=== PATIENT | female | born 1960 | race Caucasian/White ===

== ENCOUNTER 2018-10-11 13:55 | Emergency (ER) | payer OTHER ==
[~2018-10-11] VITALS: Ht 157.5 cm; Wt 64.4 kg
--- OUTSIDE RECORDS SUMMARY | 2018-10-11 13:59 | XMS REPORT | Continuity of Care Document ---
Author Author [facility] Interface Address Unknown Phone Unavailable Problems Problem Status Onset Date Classification Date Reported Comments Source Ingrowing toenail 10/02/2017 Diagnosis 11/17/[address] [facility] Nausea 09/03/2017 Diagnosis 11/17/[address] [facility] Vaccine refused by patient 07/08/2017 Diagnosis 11/17/2017 [facility] Depression screening 06/11/2017 Diagnosis 11/17/[address] [facility] Cough 02/02/2017 Diagnosis 11/17/2017 [facility] Acute conjunctivitis 01/19/2017 Diagnosis 11/17/2017 [facility] Allergic conjunctivitis 12/26/2016 Diagnosis 11/17/2017 [facility] Tobacco dependence syndrome 12/26/2016 Diagnosis 11/17/2017 [facility] Acute exacerbation of chronic obstructive airways disease 12/26/2016 Diagnosis 11/17/[address] [facility] Tobacco Dependence Syndrome 12/26/2016 Problem 11/17/[address] [facility] Acute bronchitis 10/30/2016 Diagnosis 11/17/[address] [facility] History of cerebrovascular accident 09/04/2016 Diagnosis 11/17/2017 [facility] Mononeuropathy of upper limb 09/04/2016 Diagnosis 11/17/2017 [facility] Neck pain 08/08/2016 Diagnosis 11/17/2017 [facility] Primary insomnia 08/08/2016 Diagnosis 11/17/2017 [facility] Pure hypercholesterolemia 08/08/2016 Diagnosis 11/17/2017 [facility] Essential hypertension 08/08/2016 Diagnosis 11/17/[address] [facility] Herpes simplex 08/08/2016 Diagnosis 11/17/2017 [facility] Essential Hypertension 08/08/2016 Problem 11/17/2017 [facility] Chronic obstructive lung disease 06/06/2016 Diagnosis 11/17/[address] [facility] Cellulitis of lower limb 06/06/2016 Diagnosis 11/17/2017 [facility] Low back pain 06/06/2016 Diagnosis 11/17/2017 [facility] Pure Hypercholesterolemia 12/12/2015 Problem 11/17/[address] [facility] History of TIA 11/13/2015 Problem 11/17/2017 [facility] Herpes Simplex 06/18/2015 Problem 11/17/2017 [facility] Anxiety 06/18/2015 Problem 11/17/2017 [facility] Nicotine Dependence 06/18/2015 Problem 11/17/2017 [facility] Tobacco Dependence in Remission 06/18/2015 Problem 11/17/2017 [facility] Primary Insomnia 06/18/2015 Problem 11/17/2017 [facility] Insomnia 06/18/2015 Problem 11/17/2017 [facility] Chronic Obstructive Lung Disease 06/18/2015 Problem 11/17/2017 [facility] Neck Pain 06/18/2015 Problem 11/17/2017 [facility] Low Back Pain 06/18/2015 Problem 11/17/2017 [facility] Medications Medication Details Route Status Patient Instructions Ordering Provider Order Date Source Chantix Starting Month Box 0.5 mg (11)-1 mg (42) tablets in dose pack Chantix Starting Month Box 0.5 mg (11)-1 mg (42) tablets in dose pack Active 11/02/2017 [facility] olopatadine 1 MG/ML Ophthalmic Solution olopatadine 0.1 % eye drops Active 11/02/2017 [facility] Aspirin 325 MG Delayed Release Oral Tablet aspirin 325 mg tablet,delayed release Active 09/03/2017 [facility] Cephalexin 500 MG Oral Capsule cephalexin 500 mg capsule Active 09/03/2017 [facility] doxycycline hyclate 100 MG Oral Capsule doxycycline hyclate 100 mg capsule Active 09/03/2017 [facility] umeclidinium 0.0625 MG/ACTUAT Dry Powder Inhaler Incruse Ellipta 62.5 mcg/actuation powder for inhalation Active 09/03/2017 [facility] Acetaminophen 325 MG / Oxycodone Hydrochloride 5 MG Oral Tablet oxycodone-acetaminophen 5 mg-325 mg tablet Active 09/03/2017 [facility] Sulfamethoxazole 800 MG / Trimethoprim 160 MG Oral Tablet sulfamethoxazole 800 mg-trimethoprim 160 mg tablet Active 09/03/2017 [facility] valacyclovir 500 MG Oral Tablet valacyclovir 500 mg tablet Active 09/03/2017 [facility] methylprednisolone acetate 80 MG/ML Injectable Suspension [Depo-Medrol] Depo-Medrol 80 mg/mL suspension for injection Take 1 mL every day by injection route. Active 02/18/2017 [facility] Medrol (Ananth) 4 mg tablets in a dose pack Medrol (Ananth) 4 mg tablets in a dose pack take as directed Active 02/18/2017 [facility] Bupropion (Smoking Deter) 150 mg tablet,extended release Bupropion (Smoking Deter) 150 mg tablet,extended release Take 1 tablet twice a day by oral route. Active 02/02/2017 [facility] Hydrocortisone 10 MG/ML / Neomycin 3.5 MG/ML / Polymyxin B 20346 UNT/ML Ophthalmic Suspension neomycin 3.5 mg-polymyxin 10,000 unit-hydrocort 10 mg/mL eye drop,susp INSTILL 1 DROP INTO AFFECTED EYE(S) BY OPHTHALMIC ROUTE EVERY 4 HOURS Active 02/02/2017 [facility] Rosuvastatin calcium 5 MG Oral Tablet rosuvastatin 5 mg tablet TAKE ONE TABLET BY MOUTH ONCE A DAY. Active 11/28/2016 [facility] hydrocodone-acetaminophen 325 mg-10 mg tablet hydrocodone- acetaminophen 325 mg-10 mg tablet Take 1 tablet every 6 hours by oral route as needed for 30 days. Active 10/03/2016 [facility] 200 ACTUAT Albuterol 0.09 MG/ACTUAT Metered Dose Inhaler [ProAir] ProAir HFA 90 mcg/actuation aerosol inhaler Inhale 2 puffs every 4 hours by inhalation route for 30 days. Active 10/03/2016 [facility] alcaftadine 2.5 MG/ML Ophthalmic Solution [Lastacaft] Lastacaft 0.25 % eye drops Active [facility] Amerigel Wound Wash solution Amerigel Wound Wash solution Apply twice a day to affected area Active [facility] Aspirin 81 MG Delayed Release Oral Tablet aspirin 81 mg tablet,delayed release Active [facility] Azithromycin 250 MG Oral Tablet azithromycin 250 mg tablet Active [facility] fluticasone furoate 0.1 MG/ACTUAT / vilanterol 0.025 MG/ACTUAT Dry Powder Inhaler Breo Ellipta 100 mcg-25 mcg/dose powder for inhalation Inhale 1 puff every day by inhalation route for 90 days. Active [facility] fluticasone furoate 0.2 MG/ACTUAT / vilanterol 0.025 MG/ACTUAT Dry Powder Inhaler Breo Ellipta 200 mcg-25 mcg/dose powder for inhalation Active [facility] cefdinir 300 MG Oral Capsule cefdinir 300 mg capsule Active [facility] varenicline 1 MG Oral Tablet Chantix Continuing Month Box 1 mg tablet Take 1 tablet twice a day by oral route. Active [facility] ciclopirox 80 MG/ML Topical Solution ciclopirox 8 % topical solution Active [facility] clopidogrel 75 MG Oral Tablet clopidogrel 75 mg tablet Active [facility] Codeine Phosphate 2 MG/ML / Guaifenesin 20 MG/ML Oral Solution Virtussin AC 10 mg-100 mg/5 mL oral liquid Active [facility] Fluticasone propionate 0.05 MG/ACTUAT Metered Dose Nasal [place] fluticasone 50 mcg/actuation nasal spray,suspension Active [facility] gabapentin 400 MG Oral Capsule gabapentin 400 mg capsule Active [facility] gabapentin 600 MG Oral Tablet gabapentin 600 mg tablet Active [facility] Acetaminophen 325 MG / Hydrocodone Bitartrate 10 MG Oral Tablet hydrocodone 10 mg-acetaminophen 325 mg tablet Take 1 tablet every 6 hours by oral route for 30 days. Active [facility] Ibuprofen 800 MG Oral Tablet ibuprofen 800 mg tablet Active [facility] Albuterol 0.833 MG/ML / Ipratropium [place] 0.167 MG/ML Inhalant Solution ipratropium-albuterol 0.5 mg-3 mg(2.5 mg base)/3 mL nebulization soln Inhale 3 mL 4 times a day by nebulization route for 10 days. Active [facility] Levofloxacin 750 MG Oral Tablet levofloxacin 750 mg tablet Active [facility] Losartan Potassium 50 MG Oral Tablet losartan 50 mg tablet Take 1 tablet every day by oral route for 90 days. Active [facility] meloxicam 7.5 MG Oral Tablet meloxicam 7.5 mg tablet Active [facility] 200 ACTUAT Albuterol 0.09 MG/ACTUAT Dry Powder Inhaler [ProAir] ProAir RespiClick 90 mcg/actuation breath activated Active [facility] Promethazine Hydrochloride 25 MG Oral Tablet promethazine 25 mg tablet Active [facility] Simvastatin 5 MG Oral Tablet simvastatin 5 mg tablet Active [facility] Carisoprodol 350 MG Oral Tablet [Soma] Soma 350 mg tablet Take 1 tablet 3 times a day by oral route as needed for 30 days. Active [facility] Budesonide 0.08 MG/ACTUAT / formoterol fumarate 0.0045 MG/ACTUAT Metered Dose Inhaler Symbicort 80 mcg-4.5 mcg/actuation HFA aerosol inhaler Active [facility] Trazodone Hydrochloride 100 MG Oral Tablet trazodone 100 mg tablet TAKE TWO TABLETS BY MOUTHONCE A DAY EVERY EVENING. Active [facility] valacyclovir 1000 MG Oral Tablet valacyclovir 1 gram tablet Active [facility] Allergies, Adverse Reactions, Alerts Substance Category Reaction Severity Reaction type Status Date Reported Comments Source Immunizations Immunization Date Given Site Status Last Updated Comments Source Tdap 03/31/2016 completed [facility] Results Order Name Results Value Reference Range Date Interpretation Comments Source [facility] metabolic 1999 panel - Serum or Plasma Glucose [Mass/volume] in Serum or Plasma 83 mg/dL 65 - 99 08/09/2016 [facility] metabolic 1999 panel - Serum or Plasma Urea nitrogen [Mass/volume] in Serum or Plasma 16 mg/dL 7 - 25 08/09/2016 [facility] metabolic 1999 panel - Serum or Plasma Creatinine [Mass/volume] in Serum or Plasma 0.66 mg/dL 0.50 - 1.05 08/09/2016 [facility] metabolic 1999 panel - Serum or Plasma Glomerular filtration rate/1.73 sq M.predicted by Creatinine-based formula (MDRD) 99 mL/min/1.73m2 > or=60 08/09/2016 [facility] metabolic 1999 panel - Serum or Plasma Glomerular filtration rate/1.73 sq M predicted among blacks by Creatinine-based formula (MDRD) 114 mL/min/1.73m2 > or=60 08/09/2016 [facility] metabolic 1999 panel - Serum or Plasma Urea nitrogen/Creatinine [Mass Ratio] in Serum or Plasma not applicable 6 - 08/09/2016 [facility] metabolic 1999 panel - Serum or Plasma Sodium [Moles/volume] in Serum or Plasma 142 mmol/L 135 - 146 08/09/2016 [facility] metabolic 2000 panel - Serum or Plasma Potassium [Moles/volume] in Serum or Plasma 4.0 mmol/L 3.5 - 5.3 08/09/2016 [facility] metabolic 1999 panel - Serum or Plasma Chloride [Moles/volume] in Serum or Plasma 106 mmol/L 98 - 110 08/09/2016 [facility] metabolic 1999 panel - Serum or Plasma Carbon dioxide, total [Moles/volume] in Serum or Plasma 29 mmol/L 20 - 31 08/09/2016 [facility] metabolic 1999 panel - Serum or Plasma Calcium [Mass/volume] in Serum or Plasma 9.8 mg/dL 8.6 - 10.4 08/09/2016 [facility] metabolic 1999 panel - Serum or Plasma Protein [Mass/volume] in Serum or Plasma 6.8 g/dL 6.1 - 8.1 08/09/2016 [facility] metabolic 1999 panel - Serum or Plasma Albumin [Mass/volume] in Serum or Plasma 4.5 g/dL 3.6 - 5.1 08/09/2016 [facility] metabolic 1999 panel - Serum or Plasma Globulin [Mass/volume] in Serum by calculation 2.3 g/dL_(calc) 1.9 - 3.7 08/09/2016 [facility] metabolic 1999 panel - Serum or Plasma Albumin/Globulin [Mass Ratio] in Serum or Plasma 2.0 (calc) 1.0 - 2.5 08/09/2016 [facility] metabolic 1999 panel - Serum or Plasma Bilirubin.total [Mass/volume] in Serum or Plasma 0.3 mg/dL 0.2 - 1.2 08/09/2016 [facility] metabolic 1999 panel - Serum or Plasma Alkaline phosphatase [Enzymatic activity/volume] in Serum or Plasma 101 U/L 33 - 130 08/09/2016 [facility] metabolic 1999 panel - Serum or Plasma Aspartate aminotransferase [Enzymatic activity/volume] in Serum or Plasma 13 U/L 10 - 35 08/09/2016 [facility] metabolic 1999 panel - Serum or Plasma Alanine aminotransferase [Enzymatic activity/volume] in Serum or Plasma 11 U/L 6 - 29 08/09/2016 [facility] Lipid 1995 panel - Serum or Plasma Cholesterol [Mass/volume] in Serum or Plasma 199 mg/dL 125 - 200 08/09/2016 [facility] Lipid 1995 panel - Serum or Plasma Cholesterol in HDL [Mass/volume] in Serum or Plasma 44 mg/dL > or=46 08/09/2016 [facility] Lipid 1995 panel - Serum or Plasma Triglyceride [Mass/volume] in Serum or Plasma 306 mg/dL <150 08/09/2016 [facility] Lipid 1995 panel - Serum or Plasma Cholesterol in LDL [Mass/volume] in Serum or Plasma by calculation 94 mg/dL_(calc) <130 08/09/2016 [facility] Lipid 1995 panel - Serum or Plasma Cholesterol.total/Cholesterol.in HDL [Mass ratio] in Serum or Plasma 4.5 (calc) < or=5.0 08/09/[address] [facility] Lipid 1996 panel - Serum or Plasma Cholesterol non HDL [Mass/volume] in Serum or Plasma 155 mg/dL_(calc) 08/09/[address] [facility] Vital Signs Vital Sign Value Date Comments Source Diastolic (mm Hg) 80 11/02/2017 [facility] Height 61.5 11/02/2017 [facility] Systolic (mm Hg) 130 11/02/2017 [facility] Weight 140.6 11/02/2017 [facility] Diastolic (mm Hg) 71 10/02/2017 [facility] Height 61.5 10/02/2017 [facility] Systolic (mm Hg) 133 10/02/2017 [facility] Weight 141.2 10/02/2017 [facility] Diastolic (mm Hg) 95 09/03/2017 [facility] Height 61.5 09/03/2017 [facility] Systolic (mm Hg) 146 09/03/2017 [facility] Weight 143.8 09/03/2017 [facility] Diastolic (mm Hg) 87 08/05/2017 [facility] Height 61.5 08/05/2017 [facility] Systolic (mm Hg) 120 08/05/2017 [facility] Weight 143 08/05/2017 [facility] Diastolic (mm Hg) 87 07/08/2017 [facility] Height 61.5 07/08/2017 [facility] Systolic (mm Hg) 142 07/08/2017 [facility] Weight 140 07/08/2017 [facility] Diastolic (mm Hg) 81 06/11/2017 [facility] Height 61.5 06/11/2017 [facility] Systolic (mm Hg) 125 06/11/2017 [facility] Weight 139 06/11/2017 [facility] Diastolic (mm Hg) 80 05/12/2017 [facility] Height 61.5 05/12/2017 [facility] Systolic (mm Hg) 128 05/12/2017 [facility] Weight 142 05/12/2017 [facility] Diastolic (mm Hg) 85 04/13/2017 [facility] Height 61.5 04/13/2017 [facility] Systolic (mm Hg) 138 04/13/2017 [facility] Weight 139 04/13/2017 [facility] Diastolic (mm Hg) 95 03/16/2017 [facility] Height 61.5 03/16/2017 [facility] Systolic (mm Hg) 153 03/16/2017 [facility] Weight 143 03/16/2017 [facility] Diastolic (mm Hg) 103 02/18/2017 [facility] Height 61.5 02/18/2017 [facility] Systolic (mm Hg) 162 02/18/2017 [facility] Weight 141 02/18/2017 [facility] Diastolic (mm Hg) 99 02/02/2017 [facility] Height 61.5 02/02/2017 [facility] Systolic (mm Hg) 128 02/02/2017 [facility] Weight 140 02/02/2017 [facility] Diastolic (mm Hg) 86 01/19/2017 [facility] Height 61.5 01/19/2017 [facility] Systolic (mm Hg) 141 01/19/2017 [facility] Weight 141 01/19/2017 [facility] Diastolic (mm Hg) 73 12/26/2016 [facility] Height 61.5 12/26/2016 [facility] Systolic (mm Hg) 149 12/26/2016 [facility] Weight 140 12/26/2016 [facility] Diastolic (mm Hg) 96 11/28/2016 [facility] Height 61.5 11/28/2016 [facility] Systolic (mm Hg) 151 11/28/2016 [facility] Weight 140.8 11/28/2016 [facility] Diastolic (mm Hg) 78 10/30/2016 [facility] Height 61.5 10/30/2016 [facility] Systolic (mm Hg) 142 10/30/2016 [facility] Weight 143 10/30/2016 [facility] Diastolic (mm Hg) 93 10/03/2016 [facility] Height 61.5 10/03/2016 [facility] Systolic (mm Hg) 147 10/03/2016 [facility] Weight 142.6 10/03/2016 [facility] Diastolic (mm Hg) 70 09/04/2016 [facility] Height 61.5 09/04/2016 [facility] Systolic (mm Hg) 129 09/04/2016 [facility] Weight 143.6 09/04/2016 [facility] Height 61.5 08/08/2016 [facility] Diastolic (mm Hg) 82 07/08/2016 [facility] Height 61.5 07/08/2016 [facility] Systolic (mm Hg) 118 07/08/2016 [facility] Weight 145 07/08/2016 [facility] Diastolic (mm Hg) 84 06/06/2016 [facility] Height 61.5 06/06/2016 [facility] Systolic (mm Hg) 128 06/06/2016 [facility] Weight 145.4 06/06/2016 [facility] Height 61.5 02/11/2016 [facility] Weight 142.8 02/11/2016 [facility] Diastolic (mm Hg) 78 02/11/2016 [facility] Systolic (mm Hg) 118 02/11/2016 [facility] Diastolic (mm Hg) 82 01/14/2016 [facility] Height 61.5 01/14/2016 [facility] Systolic (mm Hg) 139 01/14/2016 [facility] Weight 140 01/14/2016 [facility] Diastolic (mm Hg) 90 12/12/2015 [facility] Height 61.5 12/12/2015 [facility] Systolic (mm Hg) 160 12/12/2015 [facility] Weight 139.2 12/12/2015 [facility] Diastolic (mm Hg) 80 11/13/2015 [facility] Height 61.5 11/13/2015 [facility] Systolic (mm Hg) 126 11/13/2015 [facility] Weight 134.8 11/13/2015 [facility] Diastolic (mm Hg) 71 10/19/2015 [facility] Height 61.5 10/19/2015 [facility] Systolic (mm Hg) 132 10/19/2015 [facility] Weight 135.8 10/19/2015 [facility] Diastolic (mm Hg) 80 09/19/2015 [facility] Height 61.5 09/19/2015 [facility] Systolic (mm Hg) 124 09/19/2015 [facility] Weight 130 09/19/2015 [facility] Diastolic (mm Hg) 73 08/17/2015 [facility] Height 61.5 08/17/2015 [facility] Systolic (mm Hg) 134 08/17/2015 [facility] Weight 131.8 08/17/2015 [facility] Diastolic (mm Hg) 82 07/19/2015 [facility] Height 61.5 07/19/2015 [facility] Systolic (mm Hg) 132 07/19/2015 [facility] Weight 131 07/19/2015 [facility] Diastolic (mm Hg) 86 06/18/2015 [facility] Height 61.5 06/18/2015 [facility] Systolic (mm Hg) 150 06/18/2015 [facility] Weight 131.2 06/18/2015 [facility] Diastolic (mm Hg) 82 05/21/2015 [facility] Height 61.5 05/21/2015 [facility] Systolic (mm Hg) 124 05/21/2015 [facility] Weight 129.2 05/21/2015 [facility] Diastolic (mm Hg) 80 04/25/2015 [facility] Height 61.5 04/25/2015 [facility] Systolic (mm Hg) 128 04/25/2015 [facility] Weight 129.8 04/25/2015 [facility] Diastolic (mm Hg) 71 03/19/2015 [facility] Height 61.5 03/19/2015 [facility] Systolic (mm Hg) 136 03/19/2015 [facility] Weight 131.6 03/19/2015 [facility] Diastolic (mm Hg) 72 02/12/2015 [facility] Height 61.5 02/12/2015 [facility] Systolic (mm Hg) 143 02/12/2015 [facility] Weight 130.4 02/12/2015 [facility] Diastolic (mm Hg) 90 02/09/2015 [facility] Height 61.5 02/09/2015 [facility] Systolic (mm Hg) 141 02/09/2015 [facility] Weight 129 02/09/2015 [facility] Diastolic (mm Hg) 90 01/03/2015 [facility] Height 61.5 01/03/2015 [facility] Systolic (mm Hg) 150 01/03/2015 [facility] Weight 132.6 01/03/2015 [facility] Diastolic (mm Hg) 91 12/05/2014 [facility] Height 61.5 12/05/2014 [facility] Systolic (mm Hg) 150 12/05/2014 [facility] Weight 132.6 12/05/2014 [facility] Diastolic (mm Hg) 70 11/03/2014 [facility] Systolic (mm Hg) 118 11/03/2014 [facility] Height 61.5 11/03/2014 [facility] Weight 134.8 11/03/2014 [facility] Diastolic (mm Hg) 80 10/05/2014 [facility] Height 61.5 10/05/2014 [facility] Systolic (mm Hg) 120 10/05/2014 [facility] Weight 135 10/05/2014 [facility] Diastolic (mm Hg) 80 08/18/2014 [facility] Height 61.5 08/18/2014 [facility] Systolic (mm Hg) 140 08/18/2014 [facility] Weight 129.6 08/18/2014 [facility] Diastolic (mm Hg) 90 07/21/2014 [facility] Height 61.5 07/21/2014 [facility] Systolic (mm Hg) 140 07/21/2014 [facility] Weight 131.8 07/21/2014 [facility] Diastolic (mm Hg) 90 06/22/2014 [facility] Height 61.5 06/22/2014 [facility] Systolic (mm Hg) 140 06/22/2014 [facility] Weight 131 06/22/2014 [facility] Height 61.5 04/27/2014 [facility] Weight 128.4 04/27/2014 [facility] Height 61.5 02/28/2014 [facility] Weight 124.2 02/28/2014 [facility] Height 61.5 11/04/2013 [facility] Weight 128.4 11/04/2013 [facility] Weight 125.8 09/02/2013 [facility] Height 61.5 09/02/2013 [facility] Height 61.5 05/31/2013 [facility] Weight 125.8 05/31/2013 [facility] Height 61.5 02/02/2013 [facility] Weight 126.2 02/02/2013 [facility] Height 61.5 10/25/2012 [facility] Weight 135 10/25/2012 [facility] Height 61.5 08/26/2012 [facility] Weight 130 08/26/2012 [facility] Height 61.5 07/02/2012 [facility] Weight 128 07/02/2012 [facility] Height 61.5 05/13/2012 [facility] Weight 128.6 05/13/2012 [facility] [facility] Height 61.5 03/26/2012 [facility] Weight 127 03/26/2012 [facility] Height 61.5 12/26/2011 [facility] Weight 125.6 12/26/2011 [facility] Height 61.5 11/10/2011 [facility] Weight 126.6 11/10/2011 [facility] Weight 126.6 07/15/2011 [facility] Height 61.5 07/15/2011 [facility] Height 61.5 04/17/2011 [facility] Weight 122.4 04/17/2011 [facility] Height 61.5 01/07/2011 [facility] Weight 119.2 01/07/2011 [facility] Weight 126 09/25/2010 [facility] Height 61.5 06/05/2010 [facility] Weight 122 06/05/2010 [facility] Weight 123 04/11/2010 [facility] Weight 131 12/19/2009 [facility] Weight 126.2 12/14/2009 [facility] Weight 116 07/31/2009 [facility] Weight 114 07/16/2009 [facility] Weight 116 07/04/2009 [facility] Weight 116 06/28/2009 [facility] Height 61.5 04/03/2009 [facility] Weight 125 04/03/2009 [facility] Height 62.5 01/18/2009 [facility] Weight 121 01/18/2009 [facility] Weight 125 10/19/2008 [facility] Weight 124.7 09/07/2008 [facility] Weight 127.4 06/26/2008 [facility] Weight 127.6 05/02/2008 [facility] Weight 125.8 03/07/2008 [facility] Weight 127.4 01/14/2008 [facility] Weight 132.6 12/02/2007 [facility] Weight 130.8 11/15/2007 [facility] Weight 135.2 09/08/2007 [facility] Weight 139.2 07/06/2007 [facility] Weight 134.6 05/04/2007 [facility] Weight 136.8 04/15/2007 [facility] Weight 135.7 04/12/2007 [facility] Weight 136.8 03/16/2007 [facility] Weight 134.4 02/16/2007 [facility] Height 62 12/08/2006 [facility] Weight 132.8 12/08/2006 [facility] Height 62 08/14/2006 [facility] Weight 131.3 08/14/2006 [facility] Height 62 04/30/2006 [facility] Weight 127 04/30/2006 [facility] Height 62 10/09/2005 [facility] Weight 130 10/09/2005 [facility] Height 62 07/28/2005 [facility] Weight 135 07/28/2005 [facility] Height 62 03/14/2005 [facility] Weight 132 03/14/2005 [facility] Height 62 01/30/2005 [facility] Weight 129 01/30/2005 [facility] Height 62 10/15/2004 [facility] Weight 124 10/15/2004 [facility] Weight 125 07/19/2004 [facility] Encounters Location Location Details Encounter Type Encounter Number Reason For Visit Attending Provider ADM Date DC Date Status Source [facility] Gayle Pratik, UTILITY AGENT: [address] [facility], [facility] [address], [place] [address], Ph. [id number] Gayle Pratik 06/06/2016 [facility] NICO Rubi: [address] [facility], [facility] [address], [place] [address], Ph. [id number] Cathy Valles 07/08/2016 [facility] Will Tsai MD: [address] [facility], [facility] [address] [address], Ph. [id number] Will Tsai 08/08/2016 [facility] John Hanley MD: [address] [facility], [address] [address], Ph. [id number] John Hanley 09/04/2016 [facility] NICO Rubi: [address] [facility], [facility] [address], [place] [address], Ph. [id number] Cathy Valles 10/03/2016 [facility] NICO Rubi: [address] [facility], [facility] [address], [place] [address], Ph. [id number] Cathy Valles 10/30/2016 [facility] Cathy Valles PA: [address], [address], [place] [address], Ph. [id number] Cathy Valles 11/28/[address] [facility] C[place], [place]: [address], [address], [place] [address], Ph. [id number] Cathy Valles 12/26/[address] [facility] Cathy Valles PA: [address], [address], [place] [address], Ph. [id number] Cathy Valles 01/19/[address] [facility] [place]: [address], [address], [place] [address], Ph. [id number] Cathy Valles 02/02/[address] [facility] Cathy Valles PA: [address], [address], [place] [address], Ph. [id number] Cathy Valles 02/18/[address] [facility] Cathy Valles PA: [address], [address], [place] [address], Ph. [id number] Cathy Valles 03/16/[address] [facility] Cathy Valles PA: [address], [address], [place] [address], Ph. [id number] Cathy Valles 04/13/[address] [facility] Cathy Valles PA: [address] [facility], [address], [place] [address], Ph. [id number] Cathy Valles 05/12/[address] [facility] Cathy Valles PA: [address] [facility], [address], [place] [address], Ph. [id number] Cathy Valles 06/11/2017 [facility] Practice [facility] - [facility] John Hanley MD: [address] [facility], [address], [place] [address], Ph. [id number] John Hanley 07/08/2017 [facility] Gayle Christie, UTILITY AGENT: [address] [facility], [address], [place] [address], Ph. [id number] Gayle Christie 08/05/[address] [facility] Family Practice [facility] John Hanley MD: [address] [facility], [address], [place] [address], Ph. [id number] John Hanley 09/03/[address] [facility] Gayle Christie, UTILITY AGENT: [address] [facility], [address], [place] [address], Ph. [id number] Gayle Christie 10/02/2017 [facility] - [facility] NICO Rubi: [address] [facility] [address], [place] [address], Ph. [id number] Cathy Valles 11/02/2017 [facility] Procedures Procedure Code Date Perfomer Comments Source MAMMO, screening, digital, bilateral 03/17/2017 [facility] [id number] RADIOLOGIC EXAMINATION, CHEST [id number] 02/02/2017 [facility] XR, lumbar spine 08/08/2016 [facility] X-RAY CERVICAL SPINE 2 OR 3 VIEW [id number] 08/08/2016 [facility]
--- OUTSIDE RECORDS SUMMARY | 2018-10-11 14:00 | XMS REPORT ---
Author Organization Unknown Address [address] [place] [id number] Phone [phone] Care Team Providers Care Mother Repairer Name Role Phone JOHN "BRIAN" NICOLASA GRIFFITH 3 [phone] MARITZA LAWLER MD 114 [phone] Allergies Code Code System Name Reaction Severity Status Onset NKDA Medications Name Status Start Date Stop Date Lastacaft 0.25 % eye drops Active Not available Amerigel Wound Wash solution Apply twice a day to affected area Active Not available aspirin 325 mg tablet,delayed release Completed 09/03/2017 aspirin 81 mg tablet,delayed release Active Not available azithromycin 250 mg tablet Active Not available Breo Ellipta 100 mcg-25 mcg/dose powder for inhalation Inhale 1 puff every day by inhalation route for 90 days. Active Not available Breo Ellipta 200 mcg-25 mcg/dose powder for inhalation Active Not available Bupropion (Smoking Deter) 150 mg tablet,extended release Take 1 tablet twice a day by oral route. Completed 02/02/2017 cefdinir 300 mg capsule Active Not available cephalexin 500 mg capsule Completed 09/03/2017 Chantix Continuing Month Box 1 mg tablet Take 1 tablet twice a day by oral route. Active Not available Chantix Starting Month Box 0.5 mg (11)-1 mg (42) tablets in dose pack Completed 11/02/2017 ciclopirox 8 % topical solution Active Not available clopidogrel 75 mg tablet Active Not available Virtussin AC 10 mg-100 mg/5 mL oral liquid Active Not available Depo-Medrol 80 mg/mL suspension for injection Take 1 mL every day by injection route. Completed 02/18/2017 doxycycline hyclate 100 mg capsule Completed 09/03/2017 fluticasone 50 mcg/actuation nasal spray,suspension Active Not available gabapentin 400 mg capsule Active Not available gabapentin 600 mg tablet Active Not available hydrocodone 10 mg-acetaminophen 325 mg tablet Take 1 tablet every 6 hours by oral route for 30 days. Active Not available hydrocodone-acetaminophen 325 mg-10 mg tablet Take 1 tablet every 6 hours by oral route as needed for 30 days. Completed 10/03/2016 ibuprofen 800 mg tablet Active Not available Incruse Ellipta 62.5 mcg/actuation powder for inhalation Completed 09/03/2017 ipratropium-albuterol 0.5 mg-3 mg(2.5 mg base)/3 mL nebulization soln Inhale 3 mL 4 times a day by nebulization route for 10 days. Active Not available levofloxacin 750 mg tablet Active Not available losartan 50 mg tablet Take 1 tablet every day by oral route for 90 days. Active Not available Medrol (Ananth) 4 mg tablets in a dose pack take as directed Completed 02/18/2017 meloxicam 7.5 mg tablet Active Not available neomycin 3.5 mg-polymyxin 10,000 unit-hydrocort 10 mg/mL eye drop,susp INSTILL 1 DROP INTO AFFECTED EYE(S) BY OPHTHALMIC ROUTE EVERY 4 HOURS Completed 02/02/2017 olopatadine 0.1 % eye drops Completed 11/02/2017 oxycodone-acetaminophen 5 mg-325 mg tablet Completed 09/03/2017 ProAir HFA 90 mcg/actuation aerosol inhaler Inhale 2 puffs every 4 hours by inhalation route for 30 days. Completed 10/03/2016 ProAir RespiClick 90 mcg/actuation breath activated Active Not available promethazine 25 mg tablet Active Not available rosuvastatin 5 mg tablet TAKE ONE TABLET BY MOUTH ONCE A DAY. Completed 11/28/2016 simvastatin 5 mg tablet Active Not available Soma 350 mg tablet Take 1 tablet 3 times a day by oral route as needed for 30 days. Active Not available sulfamethoxazole 800 mg-trimethoprim 160 mg tablet Completed 09/03/2017 Symbicort 80 mcg-4.5 mcg/actuation HFA aerosol inhaler Active Not available trazodone 100 mg tablet TAKE TWO TABLETS BY MOUTHONCE A DAY EVERY EVENING. Active Not available valacyclovir 1 gram tablet Active Not available valacyclovir 500 mg tablet Completed 09/03/2017 Problems Name Status Onset Date Source Herpes Simplex Active 06/18/2015 History Anxiety Active 06/18/2015 History Nicotine Dependence Active 06/18/2015 History Tobacco Dependence in Remission Unknown 06/18/2015 History Primary Insomnia Active 06/18/2015 History Insomnia Active 06/18/2015 History Chronic Obstructive Lung Disease Active 06/18/2015 History Neck Pain Active 06/18/2015 History Low Back Pain Active 06/18/2015 History History of TIA Active 11/13/2015 History Pure Hypercholesterolemia Active 12/12/2015 History Essential Hypertension Active 08/08/2016 Tobacco Dependence Syndrome Active 12/26/2016 Procedures Date Name Performed by 08/08/2016 XR, Lumbar Spine [facility] [address] [place], [place] [id number] (Work Place) 08/08/2016 XR, Cervical Spine, 2 or 3 View [facility] [address] [place], [place] [id number] (Work Place) 02/02/2017 XR, Chest, 2 View [facility] [address] [place], [place] [id number] (Work Place) 03/17/2017 MAMMO, Screening, Digital, Bilateral [facility] [address] [place] [address] (Work Place) Notes: 08/2016- Right ankle surgery to remove hardware 03/2016- Right ankle surgery 02/11/2016: Hysterectomy; Surgery Date: 2003 S/P Cholecystectomy; Surgery Date: 2006 S/P Apendicectomy; Surgery Date: 2006 S/P Bresas implants; Surgery Date: 2009 Lab Results Date Name Specimen Result Interpretation Description Value Range Status Address 08/08/2016 Lipid Panel, Serum Normal Cholesterol, Total 199 mg/dL 125- 200 mg/dL Final [facility] Lab: [address], [place] Low HDL Cholesterol 44 mg/dL > or=46 mg/dL Final [facility] Lab: [address], [place] High Triglycerides 306 mg/dL <150 mg/dL Final [facility] Lab: [address], [place] Normal LDL-cholesterol 94 mg/dL (calc) <130 mg/dL (calc) Final [facility] Lab: [address], [place] Normal Chol/hdlc Ratio 4.5 (calc) < or=5.0 (calc) Final [facility] Lab: [address], [place] Normal Non HDL Cholesterol 155 mg/dL (calc) Final [facility] Lab: [address], [place] 08/08/2016 CMP, Serum or Plasma Normal Glucose 83 mg/dL 65-99 mg/dL Final [facility] Lab: [address] [facility], [place] Normal Urea Nitrogen (BUN) 16 mg/dL 7-25 mg/dL Final [facility] Lab: [address] [facility], [place] Normal Creatinine 0.66 mg/dL 0.50-1.05 mg/dL Final [facility] Lab: [address] [facility], [place] Normal eGFR Non-afr. Romanian 99 mL/min/1.73m2 > or=60 mL/min/1.73m2 Final [facility] Lab: [address] [facility], [place] Normal eGFR 114 mL/min/1.73m2 > or=60 mL/min/1.73m2 Final [facility] Lab: [address] [facility], [place] BUN/creatinine Ratio not applicable (calc) 6-22 (calc) Final [facility] Lab: [address] [facility], [place] Normal Sodium 142 mmol/L 135-146 mmol/L Final [facility] Lab: [address] [facility], [place] Normal Potassium 4.0 mmol/L 3.5-5.3 mmol/L Final [facility] Lab: [address] [facility], [place] Normal Chloride 106 mmol/L 98-110 mmol/L Final [facility] Lab: [address] [facility], [place] Normal Carbon Dioxide 29 mmol/L 20-31 mmol/L [facility] Lab: [address] [facility], [place] Normal Calcium 9.8 mg/dL 8.6-10.4 mg/dL Final [facility] Lab: [address] [facility], [place] Normal Protein, Total 6.8 g/dL 6.1-8.1 g/dL Final [facility] Lab: [address] [facility], [place] Normal Albumin 4.5 g/dL 3.6-5.1 g/dL Final [facility] Lab: [address] [facility], [place] Normal Globulin 2.3 g/dL (calc) 1.9-3.7 g/dL (calc) Final [facility] Lab: [address] [facility], [place] Normal Albumin/globulin Ratio 2.0 (calc) 1.0-2.5 (calc) Final [facility] Lab: [address] [facility], [place] Normal Bilirubin, Total 0.3 mg/dL 0.2-1.2 mg/dL Final [facility] Lab: [address] [facility], [place] Normal Alkaline Phosphatase 101 U/L 33-130 U/L Final [facility] Lab: [address] [facility], [place] Normal Ast 13 U/L 10-35 U/L Final [facility] Lab: [address] [facility], [place] Normal Alt 11 U/L 6-29 U/L Final [facility] Lab: [address] [facility], [place] Pulse Oximetry Pulse Ox 97% [facility]: [address] Past Encounters 11/02/2017 Tobacco Dependence Syndrome; Low Back Pain; Chronic Obstructive Lung Disease; Essential Hypertension; Insomnia NICO Rubi: [address] [facility] [address] [address], Ph. 10/02/2017 Low Back Pain; Insomnia; Chronic Obstructive Lung Disease; Tobacco Dependence Syndrome; Ingrowing Toenail Gayle RAGHAV ChristieP: [address] [place] [address], Ph. 09/03/2017 Chronic Obstructive Lung Disease; Low Back Pain; Herpes Simplex; Insomnia; Nausea; Essential Hypertension John Hanley MD: [address] [address], Ph. 08/05/2017 Low Back Pain; Tobacco Dependence Syndrome; Chronic Obstructive Lung Disease; Insomnia Gayle PETER Christie: [address] [address], Ph. 07/08/2017 Essential Hypertension; Low Back Pain; Insomnia; Vaccine Refused by Patient; Chronic Obstructive Lung Disease; Tobacco Dependence Syndrome John Hanley MD: [address] [address], Ph. 06/11/2017 Low Back Pain; Insomnia; Acute Exacerbation of Chronic Obstructive Airways Disease; Chronic Obstructive Lung Disease; Depression Screening Cathy Valles PA: [address] [facility] [address], [place] [address], Ph. 05/12/2017 Low Back Pain NICO Rbui: [address] [facility], [address], [place] [address], Ph. 04/13/2017 Low Back Pain; Chronic Obstructive Lung Disease; Tobacco Dependence Syndrome Cathy Valles PA: [address] [facility], [facility] [address], [place] [address], Ph. 03/16/2017 Low Back Pain; Tobacco Dependence Syndrome Cathy Valles PA: [address] [facility], [facility] [address], [place] [address], Ph. 02/18/2017 Low Back Pain; Primary Insomnia; Chronic Obstructive Lung Disease Cathy Valles PA: [address]44 [facility], [facility], [place] [address], Ph. 02/02/2017 Cough; Chronic Obstructive Lung Disease; Acute Exacerbation of Chronic Obstructive Airways Disease Cathy Valles PA: [address]452 [facility], [facility] [address], [place] [address], Ph. 01/19/2017 Acute Conjunctivitis; Acute Bronchitis; Acute Exacerbation of Chronic Obstructive Airways Disease; Low Back Pain Cathy Valles PA: [address]874 [facility], [facility] [address], [place] [address], Ph. 12/26/2016 Low Back Pain; Chronic Obstructive Lung Disease; Primary Insomnia; History of TIA; Acute Exacerbation of Chronic Obstructive Airways Disease; Tobacco Dependence Syndrome; Allergic Conjunctivitis Cathy Valles PA: [address]406 [facility], [facility] [address], [place] [address], Ph. 11/28/2016 Low Back Pain; Chronic Obstructive Lung Disease; History of TIA; Mononeuropathy of Upper Limb Cathy Valles PA: [address] [facility], [address], [place] [address], Ph. 10/30/2016 Low Back Pain; Acute Bronchitis NICO Rubi: [address] [facility], [address] [address], Ph. 10/03/2016 Low Back Pain; Mononeuropathy of Upper Limb; Primary Insomnia; Herpes Simplex; History of Cerebrovascular Accident NICO Rubi: [address] [facility], [address] [address], Ph. 09/04/2016 Low Back Pain; Chronic Obstructive Lung Disease; Mononeuropathy of Upper Limb; History of Cerebrovascular Accident John Hanley MD: [id number] [facility], [address] [address], Ph. 08/08/2016 Low Back Pain; Chronic Obstructive Lung Disease; Herpes Simplex; Essential Hypertension; Pure Hypercholesterolemia; Primary Insomnia; Neck Pain Will Tsai MD: 53427 [facility], [address] [address], Ph. 07/08/2016 Low Back Pain; Cellulitis of Lower Limb NICO Rubi: [address] [facility], [address] [address], Ph. 06/06/2016 Low Back Pain; Cellulitis of Lower Limb; Chronic Obstructive Lung Disease RAGHAV PulliamP: 46894 [facility], [address] [address], Ph. Social History Smoking Status Heavy Tobacco Smoker (1/2 PPD) Vaccine List Vaccine Type Tdap 03/31/2016 Notes: 01/03/2015: DEPO-MEDROL +LIDOCAINE (01/03/2015) Plan of Care Patient Instructions Apply warm compresses to the affect area. Complete all antibiotics as prescribed. Call or RTC for worsening of symptoms or no improvement after 48hrs of treatment. Reminders Provider Appointments None recorded. Lab None recorded. Referral None recorded. Procedures None recorded. Surgeries None recorded. Imaging None recorded. Vitals 11/02/2017 01:30PM Est Patient Height Weight BMI Blood Pressure 5 ft 1.5 in 140.6 lbs 26.1 kg/m2 130/80 mm[Hg] 10/02/2017 08:15AM Est Patient Height Weight BMI Blood Pressure 5 ft 1.5 in 141.2 lbs 26.2 kg/m2 133/71 mm[Hg] 09/03/2017 09:45AM Est Patient Height Weight BMI Blood Pressure 5 ft 1.5 in 143.8 lbs 26.7 kg/m2 (1) 154/94 mm[Hg] (2) 146/95 mm[Hg] 08/05/2017 08:00AM Est Patient Height Weight BMI Blood Pressure 5 ft 1.5 in 143 lbs 26.6 kg/m2 120/87 mm[Hg] 07/08/2017 03:45PM Est Patient Height Weight BMI Blood Pressure 5 ft 1.5 in 140 lbs 26 kg/m2 142/87 mm[Hg] 06/11/2017 01:30PM Est Patient Height Weight BMI Blood Pressure 5 ft 1.5 in 139 lbs 25.8 kg/m2 125/81 mm[Hg] 05/12/2017 04:00PM Est Patient Height Weight BMI Blood Pressure 5 ft 1.5 in 142 lbs 26.4 kg/m2 128/80 mm[Hg] 04/13/2017 02:30PM Est Patient Height Weight BMI Blood Pressure 5 ft 1.5 in 139 lbs 25.8 kg/m2 138/85 mm[Hg] 03/16/2017 04:30PM Work In Same Day Height Weight BMI Blood Pressure 5 ft 1.5 in 143 lbs 26.6 kg/m2 153/95 mm[Hg] 02/18/2017 04:15PM Est Patient Height Weight BMI Blood Pressure 5 ft 1.5 in 141 lbs 26.2 kg/m2 162/103 mm[Hg] 02/02/2017 04:30PM Est Patient Height Weight BMI Blood Pressure 5 ft 1.5 in 140 lbs 26 kg/m2 128/99 mm[Hg] 01/19/2017 04:30PM Work In Same Day Height Weight BMI Blood Pressure 5 ft 1.5 in 141 lbs 26.2 kg/m2 141/86 mm[Hg] 12/26/2016 02:45PM Est Patient Height Weight BMI Blood Pressure 5 ft 1.5 in 140 lbs 26 kg/m2 149/73 mm[Hg] 11/28/2016 04:30PM Work In Same Day Height Weight BMI Blood Pressure 5 ft 1.5 in 140.8 lbs 26.2 kg/m2 151/96 mm[Hg] 10/30/2016 03:30PM Est Patient Height Weight BMI Blood Pressure 5 ft 1.5 in 143 lbs 26.6 kg/m2 142/78 mm[Hg] 10/03/2016 02:45PM Est Patient Height Weight BMI Blood Pressure 5 ft 1.5 in 142.6 lbs 26.5 kg/m2 147/93 mm[Hg] 09/04/2016 03:45PM Est Patient Height Weight BMI Blood Pressure 5 ft 1.5 in 143.6 lbs 26.7 kg/m2 129/70 mm[Hg] 08/08/2016 03:30PM Work In Same Day Height 5 ft 1.5 in 07/08/2016 03:30PM Est Patient Height Weight BMI Blood Pressure 5 ft 1.5 in 145 lbs 27 kg/m2 118/82 mm[Hg] 06/06/2016 04:00PM Est Patient Height Weight BMI Blood Pressure 5 ft 1.5 in 145.4 lbs 27 kg/m2 128/84 mm[Hg] 02/11/2016 Blood Pressure 118/78 mm[Hg] 02/11/2016 Height Weight BMI 5 ft 1.5 in 142.8 lbs 26.54 kg/m2 01/14/2016 Height Weight BMI Blood Pressure 5 ft 1.5 in 140 lbs 26.02 kg/m2 139/82 mm[Hg] 12/12/2015 Height Weight BMI Blood Pressure 5 ft 1.5 in 139.2 lbs 25.87 kg/m2 160/90 mm[Hg] 11/13/2015 Height Weight BMI Blood Pressure 5 ft 1.5 in 134.8 lbs 25.06 kg/m2 126/80 mm[Hg] 10/19/2015 Height Weight BMI Blood Pressure 5 ft 1.5 in 135.8 lbs 25.24 kg/m2 132/71 mm[Hg] 09/19/2015 Height Weight BMI Blood Pressure 5 ft 1.5 in 130 lbs 24.16 kg/m2 124/80 mm[Hg] 08/17/2015 Height Weight BMI Blood Pressure 5 ft 1.5 in 131.8 lbs 24.50 kg/m2 134/73 mm[Hg] 07/19/2015 Height Weight BMI Blood Pressure 5 ft 1.5 in 131 lbs 24.35 kg/m2 132/82 mm[Hg] 06/18/2015 Height Weight BMI Blood Pressure 5 ft 1.5 in 131.2 lbs 24.39 kg/m2 150/86 mm[Hg] 05/21/2015 Height Weight BMI Blood Pressure 5 ft 1.5 in 129.2 lbs 24.01 kg/m2 124/82 mm[Hg] 04/25/2015 Height Weight BMI Blood Pressure 5 ft 1.5 in 129.8 lbs 24.13 kg/m2 128/80 mm[Hg] 03/19/2015 Height Weight BMI Blood Pressure 5 ft 1.5 in 131.6 lbs 24.46 kg/m2 136/71 mm[Hg] 02/12/2015 Height Weight BMI Blood Pressure 5 ft 1.5 in 130.4 lbs 24.24 kg/m2 143/72 mm[Hg] 02/09/2015 Height Weight BMI Blood Pressure 5 ft 1.5 in 129 lbs 23.98 kg/m2 141/90 mm[Hg] 01/03/2015 Height Weight BMI Blood Pressure 5 ft 1.5 in 132.6 lbs 24.65 kg/m2 150/90 mm[Hg] 12/05/2014 Height Weight BMI Blood Pressure 5 ft 1.5 in 132.6 lbs 24.65 kg/m2 150/91 mm[Hg] 11/03/2014 Height Weight BMI 5 ft 1.5 in 134.8 lbs 25.06 kg/m2 11/03/2014 Blood Pressure 118/70 mm[Hg] 10/05/2014 Height Weight BMI Blood Pressure 5 ft 1.5 in 135 lbs 25.09 kg/m2 120/80 mm[Hg] 08/18/2014 Height Weight BMI Blood Pressure 5 ft 1.5 in 129.6 lbs 24.09 kg/m2 140/80 mm[Hg] 07/21/2014 Height Weight BMI Blood Pressure 5 ft 1.5 in 131.8 lbs 24.50 kg/m2 140/90 mm[Hg] 06/22/2014 Height Weight BMI Blood Pressure 5 ft 1.5 in 131 lbs 24.35 kg/m2 140/90 mm[Hg] 04/27/2014 Height Weight 5 ft 1.5 in 128.4 lbs 02/28/2014 Height Weight 5 ft 1.5 in 124.2 lbs 11/04/2013 Height Weight 5 ft 1.5 in 128.4 lbs 09/02/2013 Weight 125.8 lbs 09/02/2013 Height 5 ft 1.5 in 05/31/2013 Height Weight 5 ft 1.5 in 125.8 lbs 02/02/2013 Height Weight 5 ft 1.5 in 126.2 lbs 10/25/2012 Height Weight 5 ft 1.5 in 135 lbs 08/26/2012 Height Weight 5 ft 1.5 in 130 lbs 07/02/2012 Height Weight 5 ft 1.5 in 128 lbs 05/13/2012 Height Weight 5 ft 1.5 in 128.6 lbs 03/26/2012 Height Weight 5 ft 1.5 in 127 lbs 12/26/2011 Height Weight 5 ft 1.5 in 125.6 lbs 11/10/2011 Height Weight 5 ft 1.5 in 126.6 lbs 07/15/2011 Weight 126.6 lbs 07/15/2011 Height 5 ft 1.5 in 04/17/2011 Height Weight 5 ft 1.5 in 122.4 lbs 01/07/2011 Height Weight 5 ft 1.5 in 119.2 lbs 09/25/2010 Weight 126 lbs 06/05/2010 Height Weight 5 ft 1.5 in 122 lbs 04/11/2010 Weight 123 lbs 12/19/2009 Weight 131 lbs 12/14/2009 Weight 126.2 lbs 07/31/2009 Weight 116 lbs 07/16/2009 Weight 114 lbs 07/04/2009 Weight 116 lbs 06/28/2009 Weight 116 lbs 04/03/2009 Height Weight 5 ft 1.5 in 125 lbs 01/18/2009 Height Weight 5 ft 2.5 in 121 lbs 10/19/2008 Weight 125 lbs 09/07/2008 Weight 124.7 lbs 06/26/2008 Weight 127.4 lbs 05/02/2008 Weight 127.6 lbs 03/07/2008 Weight 125.8 lbs 01/14/2008 Weight 127.4 lbs 12/02/2007 Weight 132.6 lbs 11/15/2007 Weight 130.8 lbs 09/08/2007 Weight 135.2 lbs 07/06/2007 Weight 139.2 lbs 05/04/2007 Weight 134.6 lbs 04/15/2007 Weight 136.8 lbs 04/12/2007 Weight 135.7 lbs 03/16/2007 Weight 136.8 lbs 02/16/2007 Weight 134.4 lbs 12/08/2006 Weight 132.8 lbs 12/08/2006 Height 5 ft 2 in 08/14/2006 Height Weight 5 ft 2 in 131.3 lbs 04/30/2006 Height Weight 5 ft 2 in 127 lbs 10/09/2005 Height Weight 5 ft 2 in 130 lbs 07/28/2005 Height Weight 5 ft 2 in 135 lbs 03/14/2005 Height Weight 5 ft 2 in 132 lbs 01/30/2005 Height Weight 5 ft 2 in 129 lbs 10/15/2004 Height Weight 5 ft 2 in 124 lbs 07/19/2004 Weight 125 lbs
--- OUTSIDE RECORDS SUMMARY | 2018-10-11 14:00 | XMS REPORT ---
Author Author [facility] Address Unknown Phone Unavailable Care Team Providers Care Rn Building Name Role Phone Unavailable Unavailable Problems This patient has no known problems. Allergies, Adverse Reactions, Alerts This patient has no known allergies or adverse reactions. Medications This patient has no known medications. Results Test Description Test Time Test Comments Text Results Atomic Results Result Comments SCR MAMM BILATERAL BRYAN CAD DIGITAL W/AUGMENTATION 2018-08-26 09:52:16 - SCR MAMM BILATERAL BRYAN CAD DIGITAL W/AUGMENTATIONBILATERAL DIGITAL SCREENING MAMMOGRAM 3D/2D WITH CAD WITH AUGMENTATION: 08/19/2018CLINICAL: Asymptomatic. Digital breast tomosynthesis was performed in addition to routine CC and MLO views. Current mammographic images were evaluated by either a [employer] M-Vu or a [employer]cker CAD (computer aided detection system). Comparison is made to exam dated 03/27/2017 mammogram - [facility]. The tissue of both breasts is heterogeneously dense. This may lower the sensitivity of mammography. There are benign calcifications in both breasts. Bilateral breast implants are intact. No suspicious mass, architectural distortion, malignant type calcification, or lymph node abnormality detected. Breast architecture is stable compared to prior exams.IMPRESSION: BENIGNThere is no mammographic evidence of malignancy. Resume annual screening mammography in one year. Your patient's mammogram demonstrates that she has dense breast tissue. This can hide abnormalities. In compliance with [place] law (Henda's Law), your patient has been sent a letter which informs her of her breast density and notifies her that, depending on her individual risk factors for the development of breast cancer, she might benefit from additional screening tests such as ultrasound. Dense breast tissue, in and of itself, is a relatively common condition. Therefore, this information is not provided to cause undue concern, but rather to raise awareness and to promote discussion regarding the presence of other risk factors, in addition to dense breast tissue.Saulo Salgado M.D. rb/:08/26/2018 09:52:16 Attending Technologist: Joan King MM, [facility] Technologist: Trupti Murguia MM, [facility] sent: BIRADS 1-2 Normal Mammogram BI-RADS: 2 Benign
[2018-10-11] MEDS ORDERED: ALBUTEROL/IPRATROPIUM 3 ML NEB NEB ONE (14:30)
[2018-10-11] MEDS ORDERED: DIPHENHYDRAMINE HCL INJ 50 MG/ML VIAL IV ONE (14:30)
[2018-10-11] MEDS ORDERED: METHYLPREDNISOLONE SOD SUCC 125 MG/2ML VIAL IV ONE (14:30)
[2018-10-11] MEDS ORDERED: FAMOTIDINE 20 MG/2 ML VIAL IV ONE (14:45)
--- NOTE | 2018-10-11 15:35 | Diagnostic Imaging Report ---
EXAMINATION: CHEST 2 VIEWS INDICATION: Rule out pneumonia. COMPARISON: None FINDINGS: TUBES and LINES: None. LUNGS: Lungs are well inflated. Lungs are clear. There is no evidence of pneumonia or pulmonary edema. PLEURA: No pleural effusion or pneumothorax. HEART AND MEDIASTINUM: The cardiomediastinal silhouette is unremarkable. BONES AND SOFT TISSUES: No acute osseous abnormality. Bilateral breast implants are present. There is an old healed left posterior ninth rib fracture. UPPER ABDOMEN: No free air under the diaphragm. IMPRESSION: No evidence of pneumonia. Signed by: Dr. Adrian Yuan MD on 10/11/2018 3:32 PM
--- NOTE | 2018-10-11 16:00 | NUR ---
PT STATES SHE FEELS BETTER AFTER NEB TX AND MEDS. PT NOTED TO HAVE RHONCHI TO BUL AND BLL THAT HAS IMPROVED AFTER NEB TX. INFORMED KELSI SHAFFER OF THIS. PENDING FURTHER ORDERS AT THIS TIME.
[2018-10-11 19:52] VITALS: BP 166/87
== END 2018-10-11 17:51 | disposition home or self-care (01) ==
LOC: ER 13:55
DX: L50.0 Allergic urticaria (principal); L29.8 Other pruritus; T38.0X5A Adverse effect of glucocorticoids and synthetic analogues, initial encounter; T36.8X5A Adverse effect of other systemic antibiotics, initial encounter; J20.9 Acute bronchitis, unspecified; J00 Acute nasopharyngitis [common cold]; I10 Essential (primary) hypertension; Z86.73 Personal history of transient ischemic attack (TIA), and cerebral infarction without residual deficits
CPT/HCPCS: 71046; 99283; J1200; J2930

== ENCOUNTER 2018-10-18 14:54 | Inpatient (IN) | payer OTHER ==
[~2018-10-18] VITALS: Ht 157.5 cm; Wt 63.5 kg
[2018-10-18] MEDS ORDERED: MORPHINE SULFATE 2 MG/ML SYR 1ML IV STA (15:16)
[2018-10-18] MEDS ORDERED: SODIUM CHLORIDE 0.9% 1000ML 1,000 ML IV STA (15:16)
[2018-10-18] MEDS ORDERED: ASPIRIN 81 MG CHEW TAB PO ONE (15:30)
[2018-10-18] MEDS ORDERED: PANTOPRAZOLE 40 MG 10ML VIAL IV ONE (15:30)
[2018-10-18] MEDS ORDERED: MORPHINE SULFATE INJ 4 MG/ML INJ 1ML IV ONE (15:30)
[2018-10-18] MEDS ORDERED: ONDANSETRON HCL INJ 2MG/ML 2ML 2 MG/ML VIAL IV ONE (15:30)
[2018-10-18 15:50] LABS: BASOPHILS # (AUTO) 0.1 (0.0-0.1); BASOPHILS % 0.4 % (0.0-1.0); EOSINOPHILS # (AUTO) 0.6 (0.0-0.4); EOSINOPHILS % 3.2 % (0.0-6.0); HEMOGLOBIN 13.5 g/dL (12.0-16.0); LYMPHOCYTES # (AUTO) 4.7 (1.0-3.2); LYMPHOCYTES % 26.3 % (18.0-39.1); MEAN CORPUSCULAR HEMOGLOBIN 31.4 pg (28-32); MEAN CORPUSCULAR HGB CONC 32.9 g/dL (31-35); MEAN CORPUSCULAR VOLUME 95.3 fL (81-99); MONOCYTES # (AUTO) 1.2 (0.2-0.8); MONOCYTES % 6.8 % (4.4-11.3); NEUTROPHILS # (AUTO) 11.3 (2.1-6.9); NEUTROPHILS % 62.6 % (38.7-80.0); PLATELET COUNT 328 x10e3/uL (140-360); RED CELL DISTRIBUTION WIDTH 12.9 % (11.7-14.4)
[2018-10-18 15:53] LABS: BILIRUBIN,URINE NEGATIVE (NEGATIVE); CLARITY,URINE SL CLOUDY (CLEAR); COLOR,URINE YELLOW (YELLOW); KETONES,URINE NEGATIVE (NEGATIVE); LEUKOCYTE ESTERASE ,URINE NEGATIVE (NEGATIVE); NITRITE,URINE NEGATIVE (NEGATIVE); PROTEIN,URINE DIPSTICK NEGATIVE (NEGATIVE); URINE UROBILINOGEN 0.2 mg/dL (0.2 - 1)
[2018-10-18 16:02] LABS: INR 0.75; PROTHROMBIN TIME 11.3 seconds (11.9-14.5)
[2018-10-18 16:03] LABS: PARTIAL THROMBOPLASTIN TIME 28.8 seconds (23.8-35.5)
[2018-10-18 16:04] LABS: BACTERIA,URINE FEW /HPF
[2018-10-18 16:14] LABS: ALANINE AMINOTRANSFERASE 22 IU/L (0-55); ALBUMIN 3.7 g/dL (3.5-5.0); ALBUMIN/GLOBULIN RATIO 1.2 (0.8-2.0); ALKALINE PHOSPHATASE 72 IU/L (40-150); ANION GAP 17.1 mmol/L (8-16); BLOOD UREA NITROGEN 24 mg/dL (7-26); BUN/CREATININE RATIO 34 (6-25); CALCIUM 9.3 mg/dL (8.4-10.2); CARBON DIOXIDE 22 mmol/L (22-29); CHLORIDE 101 mmol/L (98-107); CREATINE KINASE 41 IU/L (29-168); CREATININE, SERUM 0.71 mg/dL (0.57-1.11); EST GLOMERULAR FILTRATION RATE > 60 ML/MIN (60-); GLUCOSE 114 mg/dL (74-118); LIPASE 36 U/L (8-78); MAGNESIUM 2.5 MG/DL (1.3-2.1); POTASSIUM 4.1 mmol/L (3.5-5.1); SODIUM 136 mmol/L (136-145)
[2018-10-18] MEDS ORDERED: IPRATROPIUM BROMIDE 0.02% 2.5 ML NEB NEB PRN (19:45)
[2018-10-18] MEDS ORDERED: NITROGLYCERIN 0.4 MG SUBL SL PRN (19:45)
[2018-10-18] MEDS ORDERED: ALBUTEROL SULF 0.083% NEB SOLN 3 ML NEB NEB PRN (19:45)
[2018-10-18] MEDS ORDERED: MORPHINE SULFATE 2 MG/ML SYR 1ML IV PRN (19:45)
--- NOTE | 2018-10-18 19:53 | Diagnostic Imaging Report ---
EXAM: CT Chest WITH contrast (PE Protocol) INDICATION: ^PE PROTOCOL, PLEURITIC CP RAD TO BACK COMPARISON: Chest x-ray 10/11/2018 TECHNIQUE: Chest was scanned utilizing a multidetector helical scanner from the lung apex through the level of the diaphragm after administration of IV contrast. Thin section reconstructions were obtained with special concentration on the pulmonary arteries. Coronal and sagittal reformations were obtained. Pulmonary embolism protocol was performed. IV CONTRAST: 100 mL of Isovue 370 COMPLICATIONS: None RADIATION DOSE: Total DLP: 500.01 mGy*cm Estimated effective dose: (DLP x 0.014 x size factor) mSv CTDIvol has been reviewed. It is below the limits set by the Radiation Protocol Committee (RPC). FINDINGS: LINES/ TUBES: None. LUNGS AND AIRWAYS: No filling defect is identified within the pulmonary arteries to the segmental level. Mild to moderate centrilobular and mild paraseptal emphysematous changes with apical predominance. Dependent atelectasis. 1.2 cm groundglass consolidation/nodule in the left lower lobe. (Series 3, image 74). 0.9 cm groundglass nodule in the left lower lobe. (Series 3, image 78). Airways are normal. PLEURA: The pleural spaces are clear. HEART AND MEDIASTINUM: The thyroid gland is normal. No mediastinal, hilar or axillary lymphadenopathy. 0.6 cm upper mediastinal lymph node at the level of the great vessels (series 2, image 23). The heart is normal in size. There is no pericardial effusion. Main pulmonary artery measures 2.4 cm in diameter and the ascending aorta measures 2.9 cm. UPPER ABDOMEN: 0.8 cm enhancing lesion in the right hepatic lobe (series 2, image 22), which may represent flash filling hemangioma, perfusion abnormality, or FNH. Cholecystectomy. Moderate soft plaque in the aorta. 1.3 cm cyst in the anterior interpolar region of the left kidney. Small sliding hiatal hernia. Diffuse esophageal wall thickening. BONES: The visualized bony thorax is within normal limits. SOFT TISSUES: Bilateral subpectoralis breast implants. IMPRESSION: 1. No pulmonary emboli. 2. Mild to moderate centrilobular emphysematous changes. 3. Focal patchy airspace opacities in the left lower lobe, likely infectious etiology. 4. Diffuse esophageal wall thickening, consistent with esophagitis. Signed by: Dr. Peewee Jacobs M.D. on 10/18/2018 7:50 PM
[2018-10-18] MEDS ORDERED: TRAZODONE HCL100 MG PO (20:18)
[2018-10-18] MEDS: CEFTRIAXONE SOD 1 GM/NS 50 ML 50 ML IV SCH (20:35)
[2018-10-18] MEDS: AZITHROMYCIN 500MG/NS 250 ML 250 ML IV SCH (20:46)
[2018-10-18] MEDS: ONDANSETRON HCL INJ 2MG/ML 2ML 2 MG/ML VIAL IV PRN (21:09)
[2018-10-18] MEDS: FAMOTIDINE 20 MG/2 ML VIAL IV SCH (21:09)
[2018-10-18] MEDS: MORPHINE SULFATE INJ 4 MG/ML INJ 1ML IV PRN (21:09)
[2018-10-18] MEDS ORDERED: SODIUM CHLORIDE 0.9% 50ML 50 ML ONE (21:49)
[2018-10-18] MEDS ORDERED: IOPAMIDOL 370 MG/ML 200 ML INFUS..BTL INJ ONE (21:49)
[2018-10-18 22:30] VITALS: BP 127/58
--- NOTE | 2018-10-18 22:30 | NUR ---
RECEIVED THE PT FROM ER IN A STRETCHER WITH C/O CHEST PAIN AND SHORTNESS OF BREATH.ASSESSMENT DONE.AAOX3.AMBULATES.NO RESP,DISTRESS.IV PLACED TO LAC#20G.CHEST PAIN VOICED 5/10 RADIATES TO BACK.HOME MED UPDATED. PER SCHOOL PRINCIPAL ORDER TRAZADONE 100 MG RENEWED.ORIENTED TO THE UNIT.BED LOCKED AND IN LOWEST POSITION.PHONE AND CALL LIGHT WITHIN REACH.INSTRUCTED TO CALL FOR ASSISTANCE NEEDED.KEEP MONITOR THE PT.
[2018-10-18 23:17] VITALS: BP 122/58
[2018-10-19] VITALS (7 sets, daily range): BP systolic 110–133; BP diastolic 58–82
[2018-10-19] MEDS ORDERED: GABAPENTIN300 MG PO (00:30)
[2018-10-19] MEDS ORDERED: LOSARTAN POTAS100 MG PO (00:30)
[2018-10-19] MEDS: TRAZODONE HCL 50 MG TAB PO SCH ×2 (00:35→21:13)
[2018-10-19] MEDS: ONDANSETRON HCL INJ 2MG/ML 2ML 2 MG/ML VIAL IV PRN ×2 (02:59→07:32)
[2018-10-19] MEDS: MORPHINE SULFATE INJ 4 MG/ML INJ 1ML IV PRN ×2 (03:02→07:32)
[2018-10-19 06:31] LABS: BASOPHILS # (AUTO) 0.1 (0.0-0.1); BASOPHILS % 0.4 % (0.0-1.0); EOSINOPHILS # (AUTO) 0.2 (0.0-0.4); EOSINOPHILS % 1.3 % (0.0-6.0); HEMATOCRIT 38.2 % (34.2-44.1); HEMOGLOBIN 12.5 g/dL (12.0-16.0); LYMPHOCYTES # (AUTO) 4.5 (1.0-3.2); MEAN CORPUSCULAR HEMOGLOBIN 31.2 pg (28-32); MEAN CORPUSCULAR HGB CONC 32.7 g/dL (31-35); MEAN CORPUSCULAR VOLUME 95.3 fL (81-99); MONOCYTES # (AUTO) 1.3 (0.2-0.8); MONOCYTES % 8.4 % (4.4-11.3); NEUTROPHILS # (AUTO) 9.5 (2.1-6.9); NEUTROPHILS % 60.3 % (38.7-80.0); PLATELET COUNT 273 x10e3/uL (140-360); RED BLOOD COUNT 4.01 x10e6/uL (3.6-5.1); RED CELL DISTRIBUTION WIDTH 13.1 % (11.7-14.4)
--- NOTE | 2018-10-19 07:00 | NUR ---
REPORT GIVEN TO THE ONCOMING RN WALKING ROUNDS DONE.STABLE CONDITION.
[2018-10-19 07:17] LABS: ALANINE AMINOTRANSFERASE 20 IU/L (0-55); ALBUMIN 3.2 g/dL (3.5-5.0); ALBUMIN/GLOBULIN RATIO 1.1 (0.8-2.0); ALKALINE PHOSPHATASE 65 IU/L (40-150); ANION GAP 14.1 mmol/L (8-16); BLOOD UREA NITROGEN 14 mg/dL (7-26); BUN/CREATININE RATIO 22 (6-25); CALCIUM 9.2 mg/dL (8.4-10.2); CARBON DIOXIDE 23 mmol/L (22-29); CHLORIDE 101 mmol/L (98-107); CHOL/HDL RATIO 4.3 (3.0-3.6); CHOLESTEROL 226 MD/DL (0-199); CREATININE, SERUM 0.64 mg/dL (0.57-1.11); EST GLOMERULAR FILTRATION RATE > 60 ML/MIN (60-); GLUCOSE 103 mg/dL (74-118); HDL CHOLESTEROL 53 MG/DL (40-60); LDL CHOLESTEROL 122 MG/DL (60-130); POTASSIUM 4.1 mmol/L (3.5-5.1); SODIUM 134 mmol/L (136-145); TRIGLYCERIDES 257 MG/DL (0-149)
[2018-10-19 07:28] LABS: CREATINE KINASE MB 0.8 ng/mL (0-5.0)
[2018-10-19] MEDS: ASPIRIN 81 MG ENTERIC COATED PO SCH (07:32)
[2018-10-19] MEDS: FAMOTIDINE 20 MG/2 ML VIAL IV SCH (07:32)
[2018-10-19] MEDS ORDERED: HYDRALAZINE HCL 20 MG/ML VIAL IV PRN (09:45)
[2018-10-19] MEDS ORDERED: ACETAMINOPHEN 325 MG TAB PO PRN (09:45)
--- NOTE | 2018-10-19 10:18 | Diagnostic Imaging Report ---
EXAMINATION: CHEST SINGLE (PORTABLE) INDICATION: Pneumonia. COMPARISON: CT Chest 10/18/18. FINDINGS: TUBES and LINES: None. LUNGS: Mild patchy opacities at the left lung base. No new consolidation. No evidence of pulmonary edema. PLEURA: No pleural effusion or pneumothorax. HEART AND MEDIASTINUM: The cardiomediastinal silhouette is unremarkable. BONES AND SOFT TISSUES: No acute osseous abnormality. UPPER ABDOMEN: No free air under the diaphragm. IMPRESSION: Mild patchy left basilar opacities, likely representing patchy pneumonia as seen on CT from 10/18/2018. No new consolidation. Signed by: Dr. Adrian Yuan MD on 10/19/2018 10:14 AM
[2018-10-19] MEDS ORDERED: PANTOPRAZOLE 40 MG 10ML VIAL IV NR (10:30)
[2018-10-19] MEDS: METOCLOPRAMIDE HCL 10 MG/2ML VIAL IV SCH ×3 (11:04→21:13)
[2018-10-19] MEDS: GUAIFENESIN 600MG/DEXTROMETHORPHAN 30MG TABSR PO SCH ×2 (11:04→21:13)
[2018-10-19] MEDS: ALBUTEROL/IPRATROPIUM 3 ML NEB NEB SCH ×4 (11:05→23:30)
--- NOTE | 2018-10-19 13:25 | Consultation ---
DATE OF CONSULTATION: Pulmonary Consultation Patient of Dr. Ronaldo Hanley and Dr. Long. HISTORY OF PRESENT ILLNESS: Charming, but unfortunate 58-year-old woman, admitted with cough of several weeks' duration where she has been ill all year with upper respiratory tract infection, sinusitis. Cough was first productive of green sputum, now clear and short of breath. She has been complaining of pleuritic left-sided chest pain for which she came to the hospital. She also had a history of recent reaction to Levaquin 2 weeks ago, which was treated with steroids. Pain radiates along into chest to the back, worse with deep inspiration. PAST SURGICAL HISTORY: She has had appendectomy in the past, gallbladder surgery, hysterectomy, and ankle repair. HOME MEDICATIONS: Include Neurontin, losartan, and trazodone. SOCIAL HISTORY: Smokes half a pack a day, she has done for 35 years. Works in sales. Born in [place], [place]. Drinks moderately. PHYSICAL EXAMINATION: GENERAL: She is a well-developed white female, in no acute distress, looking her stated age. VITAL SIGNS: Temperature 96.5, pulse 77, respirations 18, and blood pressure 130/82. HEAD: Normocephalic and atraumatic. EYES: Extraocular movements intact. LUNGS: Rales at left base. HEART: Regular rhythm. ABDOMEN: Nontender. EXTREMITIES: Not edematous. IMPRESSION: 1. Chronic obstructive pulmonary disease. 2. Emphysema. 3. Community-acquired pneumonia. 4. Cigarette smoking addiction. 5. History of hypertension. 6. Neuropathy. PLAN: Cigarette smoking cessation. Concur with current antibiotic therapy with Zosyn and Rocephin. Trial of nonsteroidal agents. The patient has requested Chantix and we will begin this with appropriate warnings due to prophylactic Lovenox or heparin. Thank you for this kind referral. MD JEAN Dotson/MODL /[id number]
[2018-10-19] MEDS: GABAPENTIN 300 MG CAP PO SCH ×2 (14:32→21:13)
[2018-10-19] MEDS: HYDROCODONE/APAP 5MG-325MG TAB PO PRN ×2 (14:32→21:17)
--- NOTE | 2018-10-19 14:54 | NUR ---
CASE MANAGEMENT ASSESSMENT Keller Machine Operator to bedside to discuss plan of care with patient/family. CM/SW role and care transitions discussed. Anticipated discharge plan discussed along with duration of care. CM/SW discussed patients right to make decisions in care. CM/SW work hours given. Patient lives: with daughter Paulette Admit/Transfer: thru ED Hospital/ER visits since last admit: last hospitalization a couple of years ago for broken ankle. 1 ED visit 1.5-2 weeks ago due to reaction to medication - broke out in hives POA/Emergency contact: Paulette Mijares [phone] Current/Previous Home Health: none PCP/Follow-up Care: Dr. John Hanley - pt advised to follow up with her doctor within 7 days of discharge. Current/Previous DME: nebulizer Medications (referring to index hospitalization or the first time you were in the hospital) a. Were changes made in your medications when you were in the hospital on [date of index hospitalization]? n/a b. Did you understand the changes? n/a c. Were you able to obtain your new medications right away? n/a d. Were you able to take your medications like the doctor wanted you to? n/a e. Did the hospital give you an accurate, easy to understand list of medications when you left? n/a Scale of 1-10 how comfortable does patient feel with disease management in outpatient settin Other Services: none Employment Status: employed in sales Areas of Concerns: CP Referral Needs: none Education Needs: medical management IMM/DIAZ given and signed (if applicable): n/a Goal for discharge: home CM/SW left business card at the bedside with contact information. Name and number was also written on the patients whiteboard. Patient verbalized understanding of discussion. CM will follow-up with ongoing discharge and transition of care needs.
[2018-10-19 16:13] LABS: CREATINE KINASE MB 0.9 ng/mL (0-5.0)
[2018-10-19] MEDS: VARENICLINE 1 MG TAB PO SCH (16:28)
[2018-10-19] MEDS: NAPROXEN 250 MG TAB PO SCH (16:28)
[2018-10-19] MEDS ORDERED: GUAIFENESIN 600MG/DEXTROMETHORPHAN 30MG TABSR PO SCH (17:00)
[2018-10-19] MEDS: CEFTRIAXONE SOD 1 GM/NS 50 ML 50 ML IV SCH (20:30)
[2018-10-19] MEDS: AZITHROMYCIN 500MG/NS 250 ML 250 ML IV SCH (21:00)
[2018-10-19] MEDS: HEPARIN SOD (PORCINE) 5,000 UNIT/ML VIAL SC SCH (21:30)
--- NOTE | 2018-10-19 23:00 | NUR ---
Assessment done. pain voiced 04/09.medication given.voided.bed locked and in lowest position.phone and caitlyn light within reach.instructed to call for assistance as needed.
[2018-10-20] VITALS (7 sets, daily range): BP systolic 108–159; BP diastolic 57–85
[2018-10-20] MEDS: ALBUTEROL/IPRATROPIUM 3 ML NEB NEB SCH ×6 (03:06→23:00)
--- NOTE | 2018-10-20 04:00 | NUR ---
Blood drawn and sent to the lab.provided specimen container for sputum collection.
[2018-10-20 04:59] LABS: BASOPHILS % 0.3 % (0.0-1.0); EOSINOPHILS # (AUTO) 0.3 (0.0-0.4); EOSINOPHILS % 1.9 % (0.0-6.0); HEMATOCRIT 37.2 % (34.2-44.1); HEMOGLOBIN 12.4 g/dL (12.0-16.0); LYMPHOCYTES # (AUTO) 4.1 (1.0-3.2); MEAN CORPUSCULAR HEMOGLOBIN 31.4 pg (28-32); MEAN CORPUSCULAR HGB CONC 33.3 g/dL (31-35); MEAN CORPUSCULAR VOLUME 94.2 fL (81-99); MONOCYTES # (AUTO) 1.3 (0.2-0.8); MONOCYTES % 9.7 % (4.4-11.3); NEUTROPHILS # (AUTO) 7.4 (2.1-6.9); NEUTROPHILS % 56.4 % (38.7-80.0); PLATELET COUNT 270 x10e3/uL (140-360); RED BLOOD COUNT 3.95 x10e6/uL (3.6-5.1); RED CELL DISTRIBUTION WIDTH 12.9 % (11.7-14.4)
[2018-10-20 05:10] LABS: BLOOD UREA NITROGEN 16 mg/dL (7-26); BUN/CREATININE RATIO 25 (6-25); CALCIUM 9.3 mg/dL (8.4-10.2); CARBON DIOXIDE 24 mmol/L (22-29); CHLORIDE 101 mmol/L (98-107); CREATININE, SERUM 0.65 mg/dL (0.57-1.11); EST GLOMERULAR FILTRATION RATE > 60 ML/MIN (60-); GLUCOSE 100 mg/dL (74-118); MAGNESIUM 1.9 MG/DL (1.3-2.1); SODIUM 136 mmol/L (136-145)
[2018-10-20] MEDS: PANTOPRAZOLE 40 MG 10ML VIAL IV SCH (06:12)
[2018-10-20] MEDS: HYDROCODONE/APAP 5MG-325MG TAB PO PRN ×2 (06:26→12:32)
--- NOTE | 2018-10-20 06:50 | NUR ---
Report given to the oncoming rn.walking rounds done.stable condition.
[2018-10-20] MEDS ORDERED: VARENICLINE 1 MG TAB PO SCH (09:00)
[2018-10-20] MEDS: NAPROXEN 250 MG TAB PO SCH ×2 (09:20→16:41)
[2018-10-20] MEDS: VARENICLINE 1 MG TAB PO SCH (09:20)
[2018-10-20] MEDS: ASPIRIN 81 MG ENTERIC COATED PO SCH (09:20)
[2018-10-20] MEDS: LOSARTAN POTASSIUM 100 MG TAB PO SCH (09:20)
[2018-10-20] MEDS: GUAIFENESIN 600MG/DEXTROMETHORPHAN 30MG TABSR PO SCH ×2 (09:20→20:14)
[2018-10-20] MEDS: METOCLOPRAMIDE HCL 10 MG/2ML VIAL IV SCH ×4 (09:20→20:14)
[2018-10-20] MEDS: HEPARIN SOD (PORCINE) 5,000 UNIT/ML VIAL SC SCH ×2 (09:21→21:08)
[2018-10-20] MEDS: GABAPENTIN 300 MG CAP PO SCH ×3 (09:21→20:14)
--- NOTE | 2018-10-20 19:30 | NUR ---
patient received. patient is resting in bed, easy to arouse. Resp even and unlabored. No acute distress noted. Patient denies of any pain or discomfort at this time. call light within reach. instruct to call for assistance. bed low/locked. continue to monitor closely
[2018-10-20] MEDS: CEFTRIAXONE SOD 1 GM/NS 50 ML 50 ML IV SCH (20:14)
[2018-10-20] MEDS: TRAZODONE HCL 50 MG TAB PO SCH (20:14)
[2018-10-20] MEDS: AZITHROMYCIN 500MG/NS 250 ML 250 ML IV SCH (20:59)
[2018-10-21] VITALS: BP 121/60
[2018-10-21] MEDS: ALBUTEROL/IPRATROPIUM 3 ML NEB NEB SCH ×2 (03:00→07:00)
[2018-10-21 04:00] VITALS: BP 141/74
[2018-10-21] MEDS: PANTOPRAZOLE 40 MG 10ML VIAL IV SCH (05:34)
[2018-10-21 08:00] VITALS: BP 138/63
[2018-10-21] MEDS: LOSARTAN POTASSIUM 100 MG TAB PO SCH (08:10)
[2018-10-21] MEDS: VARENICLINE 1 MG TAB PO SCH (08:10)
[2018-10-21] MEDS: NAPROXEN 250 MG TAB PO SCH (08:10)
[2018-10-21] MEDS: METOCLOPRAMIDE HCL 10 MG/2ML VIAL IV SCH ×2 (08:10→11:04)
[2018-10-21] MEDS: ASPIRIN 81 MG ENTERIC COATED PO SCH (08:10)
[2018-10-21] MEDS: GUAIFENESIN 600MG/DEXTROMETHORPHAN 30MG TABSR PO SCH (08:10)
[2018-10-21] MEDS: GABAPENTIN 300 MG CAP PO SCH (08:11)
[2018-10-21] MEDS: HEPARIN SOD (PORCINE) 5,000 UNIT/ML VIAL SC SCH (08:11)
[2018-10-21] MEDS ORDERED: ALBUTEROL2.5 MG/3 M NEB (10:31)
[2018-10-21] MEDS ORDERED: AZITHROMYCIN500 MG PO (10:31)
[2018-10-21] MEDS ORDERED: CEFUROXIME500 MG PO (10:33)
[2018-10-21] MEDS ORDERED: MUCINEX DM ER1 EACH PO (10:33)
--- NOTE | 2018-10-21 10:55 | NUR ---
[facility] [phone]
--- NOTE | 2018-10-21 11:01 | NUR ---
IV D/C AND PRESSURE DRESSING APPLIED. STORE ASSISTANT REMOVED AND RETURNED TO TELEMETRY ROOM. DISCHARGE INSTRUCTIONS AND PRESCRIPTIONS GIVEN. PT VERBALIZED UNDERSTANDING. PT AWAITING RIDE HOME.
[2018-10-21] MEDS ORDERED: VARENICLINE 1 MG TAB PO SCH (17:00)
--- NOTE | 2018-10-22 23:55 | Discharge Summary ---
ADMISSION DIAGNOSES: Chest pain, hypertension, neuropathy, insomnia, esophagitis, left lower lobe pneumonia. DISCHARGE DIAGNOSES: Chest pain, hypertension, neuropathy, insomnia, esophagitis, left lower lobe pneumonia. HISTORY: The patient has a history of hypertension, neuropathy, TIA, insomnia. SURGICAL HISTORY: Partial hysterectomy, appendectomy, cholecystectomy, right ankle surgery. FAMILY HISTORY: The patient's mom and brother have diabetes. The patient'S brother has cancer. The patient's mom and brother have stroke. SOCIAL HISTORY: The patient admits to occasional alcohol use and smoking half pack a day x35 years. HOSPITAL COURSE: A 58-year-old female complains of congestion and productive cough since the beginning of the year. She denies fever, chills, sick contacts, nausea, vomiting, diarrhea. She was given a prescription for Levaquin, but had an allergic reaction, requiring Benadryl and prednisone. After beginning prednisone, she felt better, but the symptoms returned once the prednisone was stopped. She also complains of sharp chest pressure substernally that began Thursday. The pain was constant, but would fade at times. She was sleeping when the pain started. The pain improved with pain meds, heating pad, and eating. On admission, troponins were negative x3. EKG showed normal sinus rhythm. Echo showed an EF of 50-55%. CT chest showed no PE, mild to moderate centrilobular emphysematous changes. Focal patchy air space opacities in the left lower lobe, diffuse esophageal wall thickening consistent with esophagitis. Chest x-ray showed mild patchy left basilar opacity. Blood cultures were negative. Sputum culture came back Gram-negative bacillus. The patient was discharged home with Zithromax and Ceftin, as she was on Zithromax and Rocephin in the hospital. She also got a prescription for Chantix and Combivent per Pulmonary, Mucinex DM and patient has a nebulizer at home, as it was her father's, even though she does not have COPD, she has plenty of nebulizers at home already. The patient will follow up with primary care in 1-2 weeks. Vital signs stable. The patient afebrile. The patient understands discharge instructions and agrees to plan. Dictated by Meka Paul NP MD MISTY Shea/ALMAZ /[id number]
== END 2018-10-21 11:18 | disposition home or self-care (01) | DRG 178 ==
LOC: ER 14:54 → INTOOBSV 20:19 → ERHOLD 20:19 → MED/SURG 22:31 → OBSVTOIN 10-20 10:53
PROVIDERS: ADMIT Internal Medicine; ATTEND Internal Medicine
DX: J15.0 Pneumonia due to Klebsiella pneumoniae (principal); J44.0 Chronic obstructive pulmonary disease with (acute) lower respiratory infection; J44.1 Chronic obstructive pulmonary disease with (acute) exacerbation; G47.00 Insomnia, unspecified; Z86.73 Personal history of transient ischemic attack (TIA), and cerebral infarction without residual deficits; F17.210 Nicotine dependence, cigarettes, uncomplicated; G62.9 Polyneuropathy, unspecified; K20.9 Esophagitis, unspecified
CPT/HCPCS: 36415; 71045; 71260; 80048; 80053; 80061; 81001; 82550; 82553; 83690; 83735; 83880; 84484; 85025; 85379; 85610; 85730; 87040; 87070; 87186; 87205; 93005; 93306; 94640; 99284; G0378; J0456; J0696; J1644; J2270; J2405; J2765; J7030; Q9967

== ENCOUNTER → 2024-02-12 | Day surgery (SDC) | payer BC ==
[2024-02-09 15:07] LABS: BASOPHILS % 0.5 % (0.0-1.0); EOSINOPHILS # (AUTO) 0.3 (0.0-0.4); EOSINOPHILS % 4.2 % (0.0-6.0); HEMATOCRIT 43.6 % (34.2-44.1); HEMOGLOBIN 14.2 g/dL (12.0-16.0); LYMPHOCYTES # (AUTO) 3.2 (1.0-3.2); LYMPHOCYTES % 39.5 % (18.0-39.1); MEAN CORPUSCULAR HEMOGLOBIN 30.7 pg (28-32); MEAN CORPUSCULAR HGB CONC 32.6 g/dL (31-35); MEAN CORPUSCULAR VOLUME 94.4 fL (81-99); MONOCYTES # (AUTO) 0.4 (0.2-0.8); MONOCYTES % 5.3 % (4.4-11.3); NEUTROPHILS # (AUTO) 4.1 (2.1-6.9); NEUTROPHILS % 50.4 % (38.7-80.0); PLATELET COUNT 185 x10e3/uL (140-360); RED BLOOD COUNT 4.62 x10e6/uL (3.6-5.1); RED CELL DISTRIBUTION WIDTH 14.3 % (11.7-14.4); WHITE BLOOD COUNT 8.16 x10e3/uL (4.8-10.8)
[2024-02-09 15:27] LABS: ANION GAP 18.8 mmol/L (8-16); CALCIUM 8.7 mg/dL (8.4-10.2); CREATININE, SERUM 0.74 mg/dL (0.57-1.11); POTASSIUM 4.8 mmol/L (3.5-5.1)
[~2024-02-12] MED LIST: ALBUTEROL2.5 MG/3 M NEB; ASPIRIN81 MG PO; AZITHROMYCIN500 MG PO; BUPIVACAINE 0.25% 30ML SDV ONE; CEFUROXIME500 MG PO; CEPACOL SORE THROAT LOZENGES PO ONE; CLONAZEPAM1 MG PO; DEXAMETHASONE SOD PHOS INJ 4 MG/ML SDV ONE; EPHEDRINE SULFATE INJ 50 MG/ML VIAL ONE; FENTANYL CITRATE/PF 100MCG/2 ML INJ ONE; GABAPENTIN300 MG PO; HYDROCODON-ACE1 EAC9 PO; KETOROLAC TROMETHAMINE 30 MG/ML VIAL ONE; LACTATED RINGER'S 1,000 ML ONE; LIDOCAINE HCL 2% LOCAL INJ 5 ML SDV VIAL INJ ONE; LOSARTAN POTAS100 MG PO; LYRICA150 MG PO; MIDAZOLAM HCL 2 MG/2 ML VIAL ONE; MUCINEX DM ER1 EACH PO; ONDANSETRON HCL INJ 2MG/ML 2ML 2 MG/ML VIAL ONE; OZEMPIC0.25 MG/02; PANTOPRAZOLE SO40 MG PO; PHENYLEPHRINE HCL 1% 10 MG/ML VIAL ONE; PROPOFOL IV EMULSION 10 MG/ML 20 ML VIAL ONE; PROTONIX40 MG/ML; PROVENTIL HFA6.7 GM INH; ROCURONIUM BROMIDE 10 MG/ML 5ML VIAL IV ONE; SEVOFLURANE INHAL SOLN 250 ML PEN BTL ONE; TRAZODONE HCL100 MG PO; TRELEGY ELLIPT1 EACH INH; VALTREX500 MG PO; ZYRTEC10 M3 PO
[2024-02-12] MEDS: HYDROMORPHONE 1MG/1ML INJ ONE (11:20)
[2024-02-12] MEDS: HYDROCODONE/APAP 7.5MG-325MG 1 EA TAB ONE (11:40)
[2024-02-12 12:00] VITALS: BP 127/82; PULSE 71; RESP 18; O2SAT 96
== END | disposition home or self-care (01) ==
LOC: OR 06:48
PROVIDERS: ATTEND Surgery
DX: K43.6 Other and unspecified ventral hernia with obstruction, without gangrene (principal); I10 Essential (primary) hypertension; J44.9 Chronic obstructive pulmonary disease, unspecified; M06.9 Rheumatoid arthritis, unspecified; G56.92 Unspecified mononeuropathy of left upper limb; F41.9 Anxiety disorder, unspecified; F17.200 Nicotine dependence, unspecified, uncomplicated; Z88.0 Allergy status to penicillin; Z01.812 Encounter for preprocedural laboratory examination; Z01.818 Encounter for other preprocedural examination; Z79.82 Long term (current) use of aspirin; Z79.85 Long-term (current) use of injectable non-insulin antidiabetic drugs; Z79.899 Other long term (current) drug therapy; Z85.42 Personal history of malignant neoplasm of other parts of uterus; Z86.73 Personal history of transient ischemic attack (TIA), and cerebral infarction without residual deficits
CPT/HCPCS: 36415; 49594; 71046; 80048; 85025; C1781; J1100; J1170; J1885; J2001; J2250; J2371; J2405; J2704; J3010; J7121

== ENCOUNTER → 2024-12-13 | Outpatient (REF) | payer BC, OTHER ==
[~2024-12-13] MED LIST changes: -BUPIVACAINE 0.25% 30ML SDV ONE; -CEPACOL SORE THROAT LOZENGES PO ONE; -DEXAMETHASONE SOD PHOS INJ 4 MG/ML SDV ONE; -EPHEDRINE SULFATE INJ 50 MG/ML VIAL ONE; -FENTANYL CITRATE/PF 100MCG/2 ML INJ ONE; +IOPAMIDOL 370 MG/ML 100 ML INFUS..BTL INJ ONE; -KETOROLAC TROMETHAMINE 30 MG/ML VIAL ONE; -LACTATED RINGER'S 1,000 ML ONE; -LIDOCAINE HCL 2% LOCAL INJ 5 ML SDV VIAL INJ ONE; -MIDAZOLAM HCL 2 MG/2 ML VIAL ONE; -ONDANSETRON HCL INJ 2MG/ML 2ML 2 MG/ML VIAL ONE; -PHENYLEPHRINE HCL 1% 10 MG/ML VIAL ONE; -PROPOFOL IV EMULSION 10 MG/ML 20 ML VIAL ONE; -ROCURONIUM BROMIDE 10 MG/ML 5ML VIAL IV ONE; -SEVOFLURANE INHAL SOLN 250 ML PEN BTL ONE
[2024-12-13 12:42] LABS: CREATININE, SERUM 0.74 mg/dL (0.57-1.11)
== END ==
LOC: CT 11:50
PROVIDERS: ATTEND Family Medicine
DX: R10.12 Left upper quadrant pain (principal)
CPT/HCPCS: 36415; 74177; 82565; 84520; Q9967

== ENCOUNTER 2025-06-08 13:31 | Inpatient (IN) | payer OTHER ==
[~2025-06-08] VITALS: Ht 157.5 cm; Wt 72.6 kg
[2025-06-08] VITALS (7 sets, daily range): BP systolic 125; BP diastolic 70; PULSE 58–66; RESP 16–18; TEMP 97.5–98.4; O2SAT 97
[~2025-06-08 13:31] MED LIST changes: -IOPAMIDOL 370 MG/ML 100 ML INFUS..BTL INJ ONE
[2025-06-08 15:19] LABS: BASOPHILS % 0.6 % (0.0-1.0); EOSINOPHILS % 4.7 % (0.0-6.0); LYMPHOCYTES % 45.4 % (18.0-39.1); MONOCYTES % 7.1 % (4.4-11.3); NEUTROPHILS % 41.8 % (38.7-80.0); RED CELL DISTRIBUTION WIDTH 13.5 % (11.7-14.4)
[2025-06-08] MEDS ORDERED: DIATRIZOATE MEGL/DIATRIZOA SOD 30 ML BTL PO ONE (15:28)
[2025-06-08 15:32] LABS: STREPTOCOCCUS GRP A ANTIGEN NEGATIVE (NEGATIVE)
[2025-06-08 15:36] LABS: INR 0.85
[2025-06-08 15:41] LABS: CORONAVIRUS COVID-19 AG NEGATIVE (NEGATIVE)
[2025-06-08 15:45] LABS: EST GLOMERULAR FILTRATION RATE 86 ML/MIN (>=60)
[2025-06-08] MEDS: SODIUM CHLORIDE 0.9% 1000ML 1,000 ML IV STA (16:18)
[2025-06-08] MEDS: ONDANSETRON HCL INJ 2MG/ML 2ML 2 MG/ML VIAL IV STA (16:19)
[2025-06-08] MEDS ORDERED: ONDANSETRON HCL INJ 2MG/ML 2ML 2 MG/ML VIAL IV PRN (17:00)
[2025-06-08] MEDS: SODIUM CHLORIDE 0.9% 1000ML 1,000 ML IV SCH (18:56)
[2025-06-08 20:21] LABS: LEUKOCYTE ESTERASE ,URINE NEGATIVE (NEGATIVE); PROTEIN,URINE DIPSTICK NEGATIVE (NEGATIVE); URINE UROBILINOGEN 0.2 mg/dL (0.2 - 1)
[2025-06-08] MEDS ORDERED: HYDRALAZINE HCL 20 MG/ML VIAL IV PRN (23:00)
[2025-06-09 03:33] VITALS: BP 138/63; PULSE 70; RESP 18; TEMP 97.5; O2SAT 95
[2025-06-09 07:03] LABS: BASOPHILS % 0.7 % (0.0-1.0); EOSINOPHILS % 6.5 % (0.0-6.0); LYMPHOCYTES % 45.0 % (18.0-39.1); MONOCYTES % 6.7 % (4.4-11.3); NEUTROPHILS % 40.8 % (38.7-80.0); RED CELL DISTRIBUTION WIDTH 13.3 % (11.7-14.4)
[2025-06-09 07:28] LABS: EST GLOMERULAR FILTRATION RATE 99.0 ML/MIN (>=60)
[2025-06-09 07:42] LABS: CHOL/HDL RATIO 4.4 (3.0-3.6); LDL CHOLESTEROL 74.0 MG/DL (60-130); PHOSPHORUS 3.3 MG/DL (2.3-4.7)
[2025-06-09 08:00] VITALS: BP 127/77; PULSE 70; RESP 18; TEMP 98.1; O2SAT 95
[2025-06-09] MEDS: ACETAMINOPHEN 650 MG SUPP PR ONE (10:00)
[2025-06-09 12:00] VITALS: BP 119/64; PULSE 66; RESP 17; TEMP 98; O2SAT 94
[2025-06-09] MEDS ORDERED: MIDAZOLAM HCL 2 MG/2 ML VIAL ONE (16:36)
[2025-06-09] MEDS ORDERED: LIDOCAINE HCL 2% LOCAL INJ 5 ML SDV VIAL INJ ONE (16:50)
[2025-06-09] MEDS ORDERED: PROPOFOL IV EMULSION 10 MG/ML 20 ML VIAL ONE (16:50)
[2025-06-09 17:55] VITALS: BP 147/81; PULSE 74; RESP 17; TEMP 97.7; O2SAT 95
== END 2025-06-09 18:30 | disposition home or self-care (01) | DRG 392 ==
LOC: ER 14:56 → ERHOLD 17:14 → MED/SURG3 22:48
PROVIDERS: ADMIT Internal Medicine; ATTEND Internal Medicine
PROC: 0DB78ZX Excision of Stomach, Pylorus, Via Natural or Artificial Opening Endoscopic, Diagnostic (ICD-10-PCS; 2025-06-09)
PROC: 0DB98ZX Excision of Duodenum, Via Natural or Artificial Opening Endoscopic, Diagnostic (ICD-10-PCS; 2025-06-09)
PROC: 0DB58ZX Excision of Esophagus, Via Natural or Artificial Opening Endoscopic, Diagnostic (ICD-10-PCS; principal; 2025-06-09 16:48)
PROC: 0DB68ZX Excision of Stomach, Via Natural or Artificial Opening Endoscopic, Diagnostic (ICD-10-PCS; 2025-06-09 16:48)
DX: R13.10 Dysphagia, unspecified (principal); E86.0 Dehydration; R91.8 Other nonspecific abnormal finding of lung field; I10 Essential (primary) hypertension; M54.9 Dorsalgia, unspecified; M54.2 Cervicalgia; J44.9 Chronic obstructive pulmonary disease, unspecified; Z11.52 Encounter for screening for COVID-19; Z79.82 Long term (current) use of aspirin; Z79.51 Long term (current) use of inhaled steroids; Z79.85 Long-term (current) use of injectable non-insulin antidiabetic drugs; Z86.73 Personal history of transient ischemic attack (TIA), and cerebral infarction without residual deficits; Z90.49 Acquired absence of other specified parts of digestive tract; Z90.711 Acquired absence of uterus with remaining cervical stump; Z88.0 Allergy status to penicillin; Z87.891 Personal history of nicotine dependence
CPT/HCPCS: 36415; 43235; 43239; 71250; 80053; 80061; 81001; 83036; 83518; 83735; 84100; 84439; 84443; 84484; 85025; 85610; 85730; 87070; 88112; 88305; 88312; 93005; 99284; J2003; J2250; J2405; J2470; J7030; Q9963